=== PATIENT | female | born 1985 | race Caucasian/White ===

== ENCOUNTER 2016-08-21 06:42 | Emergency (ER) | payer OTHER ==
[~2016-08-21] VITALS: Ht 170.2 cm; Wt 70.5 kg
[2016-08-21 06:44] VITALS: BP 106/70; PULSE 125; RESP 16; O2SAT 96
[2016-08-21] MEDS ORDERED: 0.9% Sodium Chloride 1,000 ML IV ONE (07:01)
--- NOTE | 2016-08-21 07:04 | ED.REPORT ---
HPI-General Illness Date of Service Aug 21, 2016 ED Provider: Rufino Badillo MD Pt is a 30 y/o female w/ a hx of RA on Enbrel presenting to the ED c/o nausea and vomiting for 12 hours. She c/o associated severe diffuse abdominal pain ( although she appears comfortable), restlessness. She denies hematemesis, fever, diarrhea, dysuria, urinary frequency. She hasn't been able to keep food or liquid down. Her daughter vomited twice recently but is otherwise healthy. He last menstrual period was 1 wk ago. Nursing Notes Stated Complaint: VOMITING/ABDOMINAL PAIN Chief Complaint: Female Abdominal Pain Nursing Notes Reviewed: Yes Allergies: Coded Allergies: No Known Allergies (Unverified , 08/21/16) Scheduled PRN Ondansetron ODT (Zofran ODT) 4 Mg Tablet 4 MG PO Q4H PRN PRN For Nausea General Time Seen by MD: 06:58 Chief Complaint Vomiting Hx Obtained From: Patient Arrived By: Walk-in Sudden in Onset?: No Onset Occurred: 9 - 12 hours ago Symptom Duration: Since onset Location: : Abdomen (diffuse) Quality: Aching Radiation: : Does not radiate Severity: Current: Severe Severity: Maximum: Severe Past Medical History Past Medical History RA - on Enbrel Past Surgical History Smoking History Unknown if Ever Smoker Ambulatory Status Independent Review of Systems Full Review of Systems Constitutional: Denies: Chills, Fever GI: Reports: Abdominal pain, Nausea, Vomiting, Denies: Hematemesis Female: Denies: Dysuria Complete sys rev & neg: except as marked. Physical Exam Vital Signs Vital Signs Date Time Temp Pulse Resp B/P Pulse Ox O2 Delivery O2 Flow Rate FiO2 08/21/16 09:22 105 15 103/54 97 Room Air 08/21/16 09:15 105 15 103/54 97 Room Air 08/21/16 06:44 36.8 125 16 106/70 96 Room Air Initial VS: Reviewed, Vital signs abnormal Head / Eyes: Atraumatic, Normocephalic, PERRL Neck: Supple, Full range of motion Respiratory: Breath sounds normal, Clear to auscultation, No respiratory distress Cardiovascular: Regular rate & rhythm, Heart sounds normal, Intact distal pulses Extremities: Vascular intact, Neuro intact, No swelling, No tenderness Skin: Warm, Dry, No cyanosis Neurologic: Alert, Oriented, Nonfocal Psychiatric: Mood/affect normal, Behavior normal, Normal thought content General/Constitutional: Awake, Alert, No acute distress, Cooperative, Not toxic appearing ENT: Atraumatic, Airway patent Mouth: Positive: Mucous membranes dry Abdomen: Atraumatic, Soft, Non-tender, No guarding, No rebound, BS normoactive , No distention, No palpable mass Tenderness/Guarding/Rebound: Negative: Tender flank L, Tender flank R Back: Full range of motion, Painless range of motion, No CVA tenderness Interpretation & Diagnostics Lab Results Interpretation Result Diagram: 08/21/16 0730 08/21/16 0730 Test 08/21/16 07:30 08/21/16 07:37 White Blood Count 10.7th/mm3 (3.8-10.1) Red Blood Count 4.99mil/mm3 (3.90-5.20) Hemoglobin 14.6g/dL (12.0-15.6) Hematocrit 42.7% (35.0-46.0) Mean Corpuscular Volume 85.6fL (81-100) Mean Corpuscular Hemoglobin 29.3pg (27.0-35.0) Mean Corpuscular Hemoglobin Concent 34.2% (32.0-37.0) Red Cell Distribution Width 12.8% (12.3-15.4) Platelet Count 254bil/L (150-400) Neutrophils (%) (Auto) 92.0% (40-74) Lymphocytes (%) (Auto) 3.6% (14-46) Monocytes (%) (Auto) 3.5% (4-12) Eosinophils (%) (Auto) 0.6% (0-5) Basophils (%) (Auto) 0.1% (0-3) Sodium Level 140mEq/L (134-144) Potassium Level 3.9mEq/L (3.5-5.2) Chloride Level 101mEq/L (97-108) Carbon Dioxide Level 24mmol/L (18-29) Blood Urea Nitrogen 11mg/dL (6-20) Creatinine 0.57mg/dL (0.57-1.00) Estimat Glomerular Filtration Rate 181mL/min (>59) Glucose Level 130mg/dL (60-99) Calcium Level 9.3mg/dL (8.5-10.1) Magnesium Level 1.9mg/dL (1.6-2.6) Total Bilirubin 0.7mg/dL (0.0-1.2) Aspartate Amino Transf (AST/SGOT) 18U/L (0-50) Alanine Aminotransferase (ALT/SGPT) 16U/L (0-32) Alkaline Phosphatase 49U/L (25-150) Total Protein 8.1g/dL (6.4-8.4) Albumin 4.7g/dL (3.4-5.0) Lipase 21U/L (13-60) Hold [place]ley Top Tube Received (Received) Urine Color Yellow (YELLOW) Urine Appearance Hazy (CLEAR,HAZY) Urine pH 8.5 (5.0-8.0) Urine Specific [place] 1.015 (1.003-1.035) Urine Protein Negativemg/dL (NEG,TRACE) Urine Glucose (UA) Negativemg/dL (NEGATIVE) Urine Ketones Negativemg/dL (NEGATIVE) Urine Occult Blood Negative (NEGATIVE) Urine Nitrite Negative (NEGATIVE) Urine Bilirubin Negative (NEGATIVE) Urine Urobilinogen Normalmg/dL (NORMAL) Urine Leukocyte Esterase Negative (NEGATIVE) Urine RBC 0-2/hpf (0-2) Urine WBC 0-5/hpf (0-5) Urine Epithelial Cells Moderate/hpf (NONE-MOD) Urine Crystals None seen (NONE SEEN) Urine Bacteria Many/hpf (NONE-FEW) Urine Hyaline Casts None/lpf (NONE) Urine Granular Casts None seen (NONE SEEN) Urine Waxy Casts None seen (NONE SEEN) Urine Red Blood Cell Casts None seen (NONE SEEN) Urine White Blood Cell Casts None seen (NONE SEEN) Urine Mucus None seen (None Seen) Urine Trichomonas None seen (NONE SEEN) Urine Yeast None (NONE SEEN) Urinalysis Comment None Urine Culture Reflexed Indicated Re-Eval/Medical Decision Med Decision/Clinical Course In summary, the patient is a 22-year-old female with a history of rheumatoid arthritis on Enbrel though an otherwise relatively good health who presents with abdominal cramping that is diffuse in nature and associated with nonbloody/ nonbilious emesis. She has recently been exposed to other individuals with similar symptoms. Upon examination she has no significant abdominal tenderness , guarding rigidity or rebound. She is afebrile with stable vital signs. Meds given: Zofran, Dilaudid, fluids Labs notable as below: CBC: Leukocytosis of 10.7 otherwise unremarkable CMP: Unremarkable UA: Negative leukocyte esterase, 0-5 whites, no bacteria. Unconvincing for UTI. Urine dip: negative, trace leukocytes, positive ketones, otherwise unremarkable. Unconvincing for UTI. After receiving medications above the patient reported significant symptomatic improvement. She was able to tolerate PO fluids. Serial abdominal examinations remained benign. At this time, her overall presentation is most suggestive of a flulike illness. She is nontoxic-appearing and relatively well- hydrated. There are no findings suggestive of an acute surgical abdominal process or urinary tract infection. testing is negative. I am reassured by her workup and examination as far. I do not feel that imaging of her abdomen is immediately warranted. She has been provided with a prescription for Zofran and advised to drink Pedialyte and orally hydrate. I feel that she is appropriate for discharge home. She will return right away should she develop any worsening or changing symptoms. Follow-up and return precautions were reviewed in detail she was discharged in good condition. Time of Eval: 09:05 Patient Status: Condition resolved, Complete relief, Pain improved Re-Evaluation/Progress Note: Pt rechecked. Informed pt of plan for treatment. Pt understands and agrees with plan for treatment. F/U and RTER warnings given. All questions addressed. Counseled Regarding: Diagnosis, Lab results, Need for follow-up, When/why to return to ED Discharge & Departure Primary Impression: Viral illness Additional Impressions: Nausea and vomiting Vomiting type: unspecified Vomiting Intractability: non-intractable Qualified Code: R11.2 - Nausea with vomiting, unspecified Abdominal pain, diffuse Dehydration Disposition: Home Discharge Condition All VS Reviewed: Yes Condition: Stable Additional Instructions: Thank you for seeking care at emergency room. It is difficult for us to make definitive diagnoses in the ED but we believe that you are experiencing a flulike illness. Our primary goal today in the ED was to evaluate you for any life-threatening conditions. Your evaluation was reassuring. You will be discharged with a prescription for nausea medication, please take as directed. Make sure to drink plenty of fluids. You should follow-up with your primary doctor in the next week. You should return to the ED immediately if you develop worsening symptoms, fevers, vomiting, cough, shortness of breath, chest pain, lightheadedness, weakness or any other concerning signs or symptoms. Thank you for letting us partake in your care today. Referrals: Luiz Carias MD (PCP) Scribe Attestation Portions of this note were transcribed by Jameel Hernandez. I, Dr. Badillo personally performed the history, physical exam and medical decision-making; I reviewed and confirmed the accuracy of the information in the transcribed note. Signed by Jameel Hernandez - Scribe - 08/21/16 - 0705 copies to: Luiz Carias MD, Beck O MD Aug 21, 2016 07:04 JAMEEL HERNANDEZ Aug 21, 2016 07:07
[2016-08-21] MEDS ORDERED: Ondansetron 2 mg/mL 2 mL Inj IVPUSH ONE (07:05)
[2016-08-21] MEDS ORDERED: ONDA4TAB9 PO (07:28)
[2016-08-21 07:42] LABS: BASOPHILS % (AUTO) 0.1 % (0-3); EOSINOPHILS % (AUTO) 0.6 % (0-5); MONOCYTES % (AUTO) 3.5 % (4-12); Mean Corpuscular Hemoglobin 29.3 pg (27.0-35.0); Mean Corpuscular Volume 85.6 fL (81-100); Platelet Count 254 bil/L (150-400)
[2016-08-21] MEDS: HYDROmorphone 0.5 mg/0.5 mL iSecure Syringe IVPUSH PRN ×2 (07:45→08:55)
[2016-08-21 08:01] LABS: Magnesium 1.9 mg/dL (1.6-2.6)
[2016-08-21 08:14] LABS: APPEARANCE,URINE HAZY (CLEAR,HAZY); COLOR,URINE YELLOW (YELLOW); OCCULT BLOOD,URINE NEGATIVE (NEGATIVE); PH,URINE 8.5 (5.0-8.0); UROBILINOGEN,URINE NORMAL (NORMAL)
[2016-08-21 09:15] VITALS: BP 103/54; PULSE 105; RESP 15; O2SAT 97
[2016-08-21 09:22] VITALS: BP 103/54; PULSE 105; RESP 15; O2SAT 97
== END 2016-08-21 09:24 | disposition home or self-care (01) ==
LOC: SED 06:42
DX: B34.9 Viral infection, unspecified (principal); E86.0 Dehydration; R10.84 Generalized abdominal pain; R11.10 Vomiting, unspecified
CPT/HCPCS: 36415; 80053; 81000; 81025; 83690; 83735; 85025; 87086; 87088; 96361; 96374; 96375; 96376; 99285; J1170; J2405; J7030